=== PATIENT | male | born 1940 | race Asian ===

== ENCOUNTER 2016-10-30 20:26 | Emergency (ER) | payer MEDICARE ==
[~2016-10-30] VITALS: Ht 170.2 cm; Wt 75.0 kg
[2016-10-30 20:28] VITALS: BP 147/85; PULSE 84; RESP 16; TEMP 97.6; O2SAT 97
[2016-10-30] MEDS ORDERED: TETANUS/DIPHTHERIA TOXOID ADULT 0.5 ML VIAL IM ONE (21:45)
--- NOTE | 2016-10-30 21:45 | PD ---
HPI Chief Complaint: Fall Time Seen by Provider: 21:41 Travel History International Travel<30 days: No Contact w/Intl Traveler<30days: No Traveled to known affect area: No History of Present Illness HPI 76-year-old male presents to emergency department by POV accompanied by his for evaluation of a fall. He was on a 3 foot step stool and fell back striking his head on the corner of a wall. He sustained a 4 cm laceration to the posterior occiput. He denies syncope. No neck or back pain. No nausea vomiting. No numbness, tingling or weakness. He states that his last tetanus shot was sometime between 5 and 10 years. He denies any other injuries. Pain is mild. [facility] Past Medical History Narrative Medical Valvular heart disease, hypertension, hypercholesterolemia Diminished Hearing: No Tetanus Vaccination: Unknown Influenza Vaccination: No Past Surgical History Narrative Surgical Heart valve repair Social History Alcohol Use: No Tobacco Use: No Substance Use: No Allergies-Medications (Allergen,Severity, Reaction): Coded Allergies: No Known Allergies (Unverified , 10/30/16) Review of Systems Except as stated in HPI: all other systems reviewed are Neg Physical Exam Narrative GENERAL: Well-developed, well-nourished in no apparent distress. Nontoxic appearing. HEAD: Normocephalic, patient has a 4 cm laceration to the posterior occiput. EYES: Pupils equal round and reactive. Extraocular motions intact. No scleral icterus. No injection or drainage. ENT: Nose clear. Throat without erythema, tonsillar hypertrophy or exudate. Uvula midline. Airway patent. NECK: Trachea midline. Supple, nontender, moves head freely. No central bony tenderness or spasm. CARDIOVASCULAR: Regular rate and rhythm without murmurs, gallops, or rubs. RESPIRATORY: Clear to auscultation. Breath sounds equal bilaterally. No wheezes , rales, or rhonchi. GASTROINTESTINAL: Abdomen soft, non-tender, nondistended. No hepato-splenomegaly , or palpable masses. No guarding. EXTREMITIES: No clubbing, cyanosis, or edema. No joint tenderness. BACK: Nontender without deformity. No flank tenderness. NEUROLOGICAL: Awake, alert and oriented x 3 .Cranial nerves grossly intact. Motor and sensory grossly within normal limits. Normal speech. Data Data Last Documented VS Vital Signs Date Time Temp Pulse Resp B/P Pulse Ox O2 Delivery O2 Flow Rate FiO2 10/30/16 21:33 16 Room Air 10/30/16 20:28 97.6 84 147/[address] Brain W/O Iv Contrast(Rout) (10/30/16 21:36) Tetanus/Diphtheria Tox Adult (Tetanus/Di (10/30/16 21:45) MDM Medical Decision Making Medical Screen Exam Complete: Yes Emergency Medical Condition: Yes Medical Record Reviewed: Yes Interpretation(s) Last [address] 10/30/166 Signed Impressions: Service Date/Time: Sunday, October 30, 2016 22:02 - CONCLUSION: No acute disease. Xavier Scott MD Differential Diagnosis MDM: High Differential diagnoses: Fracture, sprain, strain, dislocation, contusion, neurovascular injury Narrative Course Patient spends status updated. His laceration is cleansed and closed with elizabeth. This is head contusion, scalp laceration Procedures Procedure Narrative LACERATION LOCATION: Posterior occiput LENGTH: 4 cm NUMBER OF STITCHES/ELIZABETH: 5 REPAIR: The area of the laceration was prepped with Betadine and sterilely draped. The laceration was infiltrated with 1% lidocaine with epinephrine. The wound was copiously irrigated and explored without evidence of foreign body , tendon injury or neurovascular injury. The wound was closed using elizabeth. This was a simple single layer repair. A sterile dressing was applied. The patient was advised to keep the dressing clean and dry. Patient tolerated the procedure well. Diagnosis Primary Impression: Head contusion Qualified Code: S00.03XA - Contusion of scalp, initial encounter Additional Impression: Occipital scalp laceration Qualified Code: S01.01XA - Occipital scalp laceration, initial encounter Patient Instructions: General Instructions Additional Instructions: Rest. Head precautions. Tylenol for pain. Ice packs. Avoid alcohol. Local wound care with soap, water, Neosporin. Elizabeth out in 7-9 days. Avoid all sedating or intoxicating substances. Recheck with your physician within 3-7 days. Return to the ER for any problems. Med/Other Pt SpecificInfo: Wound Care Disposition: DISCHARGE HOME Condition: Stable Xavier Schafer Oct 30, 2016 21:45
--- NOTE | 2016-10-30 22:15 | RADRPT ---
EXAM DATE/TIME: 10/30/2016 22:02 [facility] COMPARISON: No previous studies available for comparison. INDICATIONS : trauma. Fell hitting back of head. RADIATION DOSE: 37.89 CTDIvol (mGy) MEDICAL HISTORY : None SURGICAL HISTORY : None. ENCOUNTER: Initial ACUITY: 1 day PAIN SCALE: 0/10 LOCATION: cranial TECHNIQUE: Multiple contiguous axial images were obtained of the head. Using automated exposure control and adj ustment of the mA and/or kV according to patient size, radiation dose was kept as low as reasonably a chievable to obtain optimal diagnostic quality images. FINDINGS: CEREBRUM: The ventricles are normal for age. No evidence of midline shift, mass lesion, hemorrhage or acute in farction. No extra-axial fluid collections are seen. POSTERIOR FOSSA: The cerebellum and brainstem are intact. The 4th ventricle is midline. The cerebellopontine angle i s unremarkable. EXTRACRANIAL: The visualized portion of the orbits is intact. SKULL: The calvaria is intact. No evidence of skull fracture. CONCLUSION: No acute disease. Xavier Scott MD on October 30, 2016 at 22:13 Board Certified Radiologist. This report was verified electronically.
== END 2016-10-30 22:48 | disposition home or self-care (01) ==
LOC: NEPB 20:26
DX: S01.01XA Laceration without foreign body of scalp, initial encounter (principal); W10.8XXA Fall (on) (from) other stairs and steps, initial encounter; Z23 Encounter for immunization
CPT/HCPCS: 12002; 70450; 90471; 90714